=== PATIENT | male | born 1975 | race Caucasian/White ===

== ENCOUNTER 2019-05-25 13:52 | Outpatient (CLI) | payer OTHER ==
--- NOTE | 2019-05-25 16:00 | RAD ---
"PRELIMINARY REPORT" EXAM: CT ABDOMEN AND PELVIS HISTORY: Flank swelling. Pain. Note is long the left flank, not. Last night. COMPARISON: 05/03/2019, 04/27/2018, 12/12/2014 Procedure: Multiple contiguous axial images were obtained and a CT of the abdomen and pelvis with IV contrast. C oronal reformats were performed. FINDINGS: Lower Chest: Redemonstration of bilateral effusions with adjacent lung parenchymal consolidation due to atelectasis or pneumonia. There is a soft tissue mass in the middle lobe, abutting the fissure measuring 2.7 x 2.8 cm. Central calcification is noted. Lesion is unchanged from November 2014 Vessels: Atherosclerosis of a nonaneurysmal aorta. Heart: Cardiomegaly. No significant pericardial fluid Abdomen: Portal vein:Patent Gallbladder: Surgically absent Liver: within normal limits. Pancreas: within normal limits. Spleen: within normal limits. Adrenals: within normal limits. Kidneys: Redemonstration of horseshoe kidneys. There are large complex cyst emanating from the upper pole right kidney. Stable complex subcapsular fluid along the lower pole of the left or right kidney. There are multiple calcifications which are in the bilateral renal parenchyma as well as the bilateral intrarenal collecting system. Interval removal of previously noted right-sided ureteral stent. No evidence of high-grade hydronephrosis. Visualized ureters have a normal caliber. No hydrour eter, periureteral fat stranding or ureterolithiasis. Peritoneum: No ascites or free air, no fluid collection. Bowel: Limited evaluation due to the lack of oral contrast administration. No evidence of bowel obstr uction. Ileocecal junction is unremarkable. Normal caliber appendix. Scattered fecal material in a nondistended, nondilated colon. Diverticulosis, without evidence of diverticulitis. Mesentery and Retroperitoneum: No enlarged mesenteric or retroperitoneal lymph nodes. Abdominal Wall: within normal limits. Pelvis: Reproductive Organs: Mildly enlarged prostate gland, measuring 5.3 x 4.6 cm Pelvis: No mass, lymphadenopathy, free air or free fluid. Bladder: within normal limits. Bones: within normal limits. IMPRESSION: 1. Redemonstration of bilateral pleural effusions with parenchymal changes. 2. Redemonstration of horseshoe kidney. Complex cystic lesions are redemonstrated. Additionally, stab le subcapsular fluid, complex 3. Interval removal of a right ureteral stent. No evidence of obstructive uropathy. Stable intrarenal calculi.
--- NOTE | 2019-05-25 16:56 | MRI ---
EXAM: Lumbar spine MRI without contrast. HISTORY: Lumbar radiculopathy COMPARISON: None FINDINGS: Multiplanar, multisequence MRI examination of the lumbar spine is performed. The conus medullaris region appears unremarkable. Some very subtle type I endplate changes of the inferior anterior endplate of T12 T12-L1 disc level: Very slight lateral recess thinning L1-L2 disc level: Unremarkable. L2-L3 disc level: Very mild lateral recess thinning L3-L4 disc level: Very slight lateral recess thinning. L4-L5 disc level: Moderate central canal and lateral recess stenosis and mild to moderate bilateral f oraminal stenosis with diffuse disc bulging. L5-S1 disc level: Unremarkable. IMPRESSION: Multilevel mostly mild lateral recess stenosis with moderate central canal and lateral recess stenosi s and [id number] bilateral foraminal stenosis at L4-L5.
--- NOTE | 2019-05-26 07:39 | RAD ---
LUMBAR SPINE FOUR VIEWS: 05/25/19 HISTORY: Radiculopathy predominantly on the left. FINDINGS: There are five lumbar type vertebrae. There is mild disc degenerative disease involving L2-3 through L5-S1. Spinal alignment appears within normal limits. There is moderate to severe facet degenerative change at L4-5. There is slight grade I anterolisthesis at L4-5 with flexion that reduces on neutral and extension positioning. No additional abnormal translational motion is demonstrated. IMPRESSION: Mild disc degenerative disease at L4-5 with moderate to severe facet degenerative change. There is ab normal translational motion at L4-5 with flexion and extension lateral projections. POS: C
== END 2019-05-25 13:53 | disposition home or self-care (01) ==
LOC: BICMRI 13:52
PROVIDERS: ATTEND Neurological Surgery
DX: M51.16 Intervertebral disc disorders with radiculopathy, lumbar region (principal)
CPT/HCPCS: 72110; 72148